=== PATIENT | male | born 1970 | race Caucasian/White ===

== ENCOUNTER → 2016-12-15 | Outpatient (CLI) | payer MEDICAID ==
[~2016-12-15] MED LIST: ALBUTEROL2.5 MG/NEB INH; AMBIEN 10MG TAB10 MG PO; ASPIRIN 81MG TA81 MG PO; BUTRANS10 MCG/HR TD; CELEXA10 M1 PO; GABAPENTIN 600600 MG PO; GRALISE300 MG PO; LISINOPRIL 10MG10 MG PO; LISINOPRIL10 MG PO; MELOXICAM15 MG PO; NEURONTIN600 M1 PO; NORCO 325 MG-101 TAB PO; OXYCODONE AND A1 TA4 PO; PANTOPRAZOLE SO40 MG PO; PERCOCET 325 MG1 TA4 PO; PROTONIX 40MG T40 MG PO; VALIUM10 MG PO; VENTOLIN H0.09 MG/AC IH
--- NOTE | 2016-12-15 12:29 | RADIOLOGY REPORT PS360 ---
CHEST(2 VIEWS-NOT PORTABLE) ORDERING PHYSICIAN : Gokul Torres MD PATIENT AGE: 46 years GENDER: Male INDICATION: Cough congestion hypertension asthma as childCOUGH PROCEDURE: CHEST(2 VIEWS-NOT PORTABLE) COMPARISON: CTA coronary artery chest CT from 09/10/2016 FINDINGS: The previous CTA chest there were bibasilar groundglass opacities posterior lung bases bilaterally which I suspect in part reflect atelectasis on that prior exam. These are not evident on today's 2 view plain film the chest. Today The lungs appear well expanded and clear. Only minimal scarring is seen along the inferior left major fissure accounting for linear density on the lateral view, overlying heart & just above diaphragm. Mid and upper lung calvo unremarkable. Heart avinash & mediastinal structures appear satisfactory. Heart normal size. No pleural effusion. Chest wall unremarkable. T-spine intact. On final review on my question some mild central airway thickening which could reflect bronchitis mild central airway inflammation this is unimpressive. Equivocal. IMPRESSION Lungs clear with nothing definitely acute. No focal pneumonia evident Central airways and markings upper normal prominence. Conceivably could reflect subtle changes of bronchitis. Correlation required
[2016-12-15 19:28] LABS: AMPHETAMINES/METAMPHETAMINES POSITIVE ng/mL (<1000)
[2016-12-22 12:36] LABS: Alprazolam Negative (Cutoff=100); Benzodiazepines Positive ng/mL (Cutoff=100); Clonazepam Negative (Cutoff=100); Flurazepam Negative (Cutoff=100); Lorazepam Negative (Cutoff=100); Midazolam Negative (Cutoff=100); Temazepam Negative (Cutoff=100); Triazolam Negative (Cutoff=100)
== END ==
LOC: RAD 10:11 → LAB 10:11
PROVIDERS: Emergency Medicine
DX: R05 Cough (principal); Z79.899 Other long term (current) drug therapy
CPT/HCPCS: G0480

== ENCOUNTER → 2017-01-12 | Outpatient (CLI) | payer MEDICAID ==
[2017-01-12 19:21] LABS: AMPHETAMINES/METAMPHETAMINES NEGATIVE ng/mL (<1000)
[2017-01-21 14:39] LABS: Alprazolam Negative (Cutoff=100); Benzodiazepines Negative ng/mL (Cutoff=100); Clonazepam Negative (Cutoff=100); Flurazepam Negative (Cutoff=100); Lorazepam Negative (Cutoff=100); Midazolam Negative (Cutoff=100); Opiates Negative (Cutoff=100); Temazepam Negative (Cutoff=100); Triazolam Negative (Cutoff=100)
== END ==
LOC: LAB 17:15
PROVIDERS: Emergency Medicine
DX: Z79.899 Other long term (current) drug therapy (principal)
CPT/HCPCS: G0480

== ENCOUNTER → 2017-02-03 | Outpatient (CLI) | payer MEDICAID ==
[2017-02-03 20:25] LABS: AMPHETAMINES/METAMPHETAMINES POSITIVE ng/mL (<1000)
[2017-02-11 05:41] LABS: Alprazolam Negative (Cutoff=100); Benzodiazepines Negative ng/mL (Cutoff=100); Clonazepam Negative (Cutoff=100); Flurazepam Negative (Cutoff=100); Lorazepam Negative (Cutoff=100); Midazolam Negative (Cutoff=100); Opiates Negative (Cutoff=100); Temazepam Negative (Cutoff=100); Triazolam Negative (Cutoff=100)
== END ==
LOC: LAB 17:30
PROVIDERS: Emergency Medicine
DX: Z79.899 Other long term (current) drug therapy (principal)
CPT/HCPCS: G0480